=== PATIENT | male | born 1940 | race Caucasian/White ===

== ENCOUNTER 2021-08-12 13:15 | Emergency (ER) | payer MEDICARE, SELFPAY ==
[2021-08-12 13:16] VITALS: BP 166/80; PULSE 72; RESP 16; TEMP 36.2; O2SAT 96; BMI 30.1
--- NOTE | 2021-08-12 13:41 | EX.ED.DYSGE1 ---
HPI History of Present Illness Chief Complaint: Complaint Narrative Narrative: 81-year-old male here for urinary retention. The patient states he developed acute onset of lower abdominal pain earlier today. States pain is constant, severe without alleviating or exacerbating features. Denies any lower extremity weakness, syncope. States no vomiting no fever. States he has not urinated today. Old chart review: hypertension, hyperlipidemia, CAD, BPH, PFSH PFSH Home Medications amlodipine 10 mg tablet 10 mg PO DAILY 08/12/21 [History Last Taken Unknown] loratadine 10 mg tablet 10 mg PO DAILY 08/12/21 [History Last Taken Unknown] losartan 100 mg tablet 100 mg PO DAILY 08/12/21 [History Last Taken Unknown] metformin 500 mg tablet 500 mg PO DAILY 08/12/21 [History Last Taken Unknown] metoprolol succinate 50 mg tablet,extended release 24 hr 50 mg PO DAILY 08/12/21 [History Last Taken Unknown] rosuvastatin 5 mg tablet 5 mg PO DAILY 08/12/21 [History Last Taken Unknown] Allergy/AdvReac Type Severity Reaction Status Date / Time No Known Allergies Allergy Verified 08/12/21 13:16 Social History Smoking Status: Never smoker ROS ROS ED Eyes Eyes: Denies other visual disturbances ENT ENT ED: Denies ear pain Cardiovascular Cardiovascular: Denies chest pain Respiratory/Chest Respiratory/Chest: Denies dyspnea Gastrointestinal Gastrointestinal: Reports abdominal pain Genitourinary Genitourinary ED: Reports other Details: Notes urinary retention ; Denies dysuria Musculoskeletal Musculoskeletal: Denies joint pain Integumentary Denies rash Neurologic Neurologic: Denies dizziness, focal weakness, numbness, syncope or weakness Psychiatric Psychiatric: Denies homicidal ideation or suicidal ideation EXAM Physical Exam Const Vital Signs: 08/12/21 13:16 Temperature 97.2 F L Temperature Source Temporal Pulse Rate 72 Respiratory Rate 16 Blood Pressure 166/80 H Blood Pressure Mean 108 Pulse Ox 96 Oxygen Delivery Method Room Air Negative for alert or oriented x3 General Appearance ED: Negative for comfortable Orientation / Consciousness: Negative for awake HEENT Denies normocephalic Face and Sinus: Negative for face symmetric External Ear: Negative for external ears normal Mouth ED: No moist mucous membranes normal Throat: Negative for posterior oropharynx normal Eyes Negative for PERRL or EOMs intact bilaterally Neck No full ROM Carotids: other Other Details: no carotid bruits Chest Wall Negative for inspection of chest normal Resp No normal respiratory effort, No no retractions, No no use of accessory muscles and No clear to auscultation bilaterally Cardio Negative for no murmurs or peripheral pulses 2+ throughout GI Negative for no bruits GI Narrative: no pulsatile abdominal masses. Lower abdominal TTP, lower abdominal/suprapubic fullness. No peritoneal signs. Negative for no CVA tenderness Back/Spine General Back: Negative for CVA tenderness Cervical Spine: Negative for cervical ROM normal Extremity Negative for normal to inspection or full ROM Skin no rashes or lesions noted MDM MDM MDM Narrative Medical decision making narrative: 81-year-old male here for lower abdominal pain, urinary retention in the setting of BPH. Patient was hemodynamically stable, afebrile, nontoxic-appearing. Exam with lower abdominal, suprapubic fullness. Bladder scan showed urinary retention of approximate 600 cc. Rodney catheter was placed by nursing and drained 700 cc. Patient's pain resolved. Likely etiology is urinary retention. Check urine for infection. If there is urine infection will give antibiotics we will give prompt urologic follow-up Lab Data Attestation: I reviewed the patient's lab results. Lab results narrative: Urinalysis shows no evidence of urinary inflammation suggestive of UTI Labs: Laboratory Results - last 24 hr 08/12/21 13:49 Urine Color Yellow Urine Clarity Clear Urine pH 6.0 Ur Specific Branscomb 1.015 Urine Protein 30 H Urine Glucose (UA) 100 H Urine Ketones Negative Urine Occult Blood 25 H Urine Nitrite Negative Urine Bilirubin Negative Urine Urobilinogen Normal Ur Leukocyte Esterase Negative Treatment and Re-Evaluation Narrative: After Rodney catheter placement patient noted complete resolution of symptoms peer repeat abdominal exam remained benign with no tenderness no indication for further imaging or labs at this time. Patient is appropriate for discharge home. Discharge Plan Triage Chief Complaint: Complaint ED Provider: Robert Foster Dx/Rx/DC Orders Clinical Impression: Urinary retention Prescriptions: No Action metformin 500 mg Tablet 500 mg PO DAILY metoprolol succinate 50 mg Tablet Extended Release 24 Hr 50 mg PO DAILY amlodipine 10 mg Tablet 10 mg PO DAILY losartan 100 mg Tablet 100 mg PO DAILY loratadine 10 mg Tablet 10 mg PO DAILY rosuvastatin 5 mg Tablet 5 mg PO DAILY Primary Care Provider: Jason Valentine CLEANER GREASER Referrals: Jone Virk MD [NON-STAFF] - John Spain MD [STAFF PHYSICIAN] - Activity Restrictions/Additional Instructions: Please follow-up with the urologist that has been provided. Please keep Rodney catheter in place until follow-up. Please return if develop worsening abdominal pain, fever, nausea vomiting, chills. Disposition Disposition: Home, Self Care
[2021-08-12 14:08] LABS: Color, Urine Yellow (Yellow); Glucose, Dipstick 100 mg/dl (Normal); Ketone-Dipstick Negative (Negative); Leukocyte Esterase-Dipstick Negative /ul (Negative); Nitrite-Dipstick Negative (Negative); Occult Blood-Urine 25 /ul (Negative); Protein-Dipstick 30 mg/dl (Negative); Specific Gravity, Urine 1.015 (1.002-1.030); Urine Bilirubin Dipstick Negative (Negative); Urine Urobilinogen Normal (Normal)
[2021-08-12 14:10] LABS: Urine Clarity Clear (Clear)
== END 2021-08-12 15:47 | disposition home or self-care (01) ==
PROVIDERS: Emergency Provider Emergency Medicine; PCP Nurse Practitioner Family; Visit Provider Emergency Medicine
DX: N40.1 Benign prostatic hyperplasia with lower urinary tract symptoms (principal); R33.8 Other retention of urine; I25.10 Atherosclerotic heart disease of native coronary artery without angina pectoris; I10 Essential (primary) hypertension; E78.5 Hyperlipidemia, unspecified; Z79.899 Other long term (current) drug therapy
CPT/HCPCS: 51702; 81002; 99283

== ENCOUNTER 2021-08-19 20:54 | Emergency (ER) | payer MEDICARE, SELFPAY ==
[2021-08-19 20:55] VITALS: BP 168/78; PULSE 104; RESP 18; TEMP 35.9; O2SAT 95; BMI 30.1
--- NOTE | 2021-08-19 21:16 | EDS_ITS ---
HPI History of Present Illness Chief Complaint: Complaint Informant: patient and family Narrative Narrative: Patient presents with urinary retention. He states he had a catheter placed about a week ago. He went to Dr. Estrella's office today. The catheter was r emoved. He initially urinated but since about 1:00 this afternoon he has not been able to urinate at all. He feels pressure in his lower abdomen. He has not been having bleeding. No nausea vomiting fevers or chills. Nothing makes this better or worse. He states this is exactly what he felt last time and the catheter resolved all his symptoms. [facility] Home Medications amlodipine 10 mg tablet 10 mg PO DAILY 08/12/21 [History Last Taken Unknown] loratadine 10 mg tablet 10 mg PO DAILY 08/12/21 [History Last Taken Unknown] losartan 100 mg tablet 100 mg PO DAILY 08/12/21 [History Last Taken Unknown] metformin 500 mg tablet 500 mg PO DAILY 08/12/21 [History Last Taken Unknown] metoprolol succinate 50 mg tablet,extended release 24 hr 50 mg PO DAILY 08/12/21 [History Last Taken Unknown] rosuvastatin 5 mg tablet 5 mg PO DAILY 08/12/21 [History Last Taken Unknown] Allergy/AdvReac Type Severity Reaction Status Date / Time No Known Allergies Allergy Verified 08/19/21 20:55 Social History Smoking Status: Never smoker ROS [facility] ED Constitutional Constitutional ED: Denies chills, fever(s) or sweats Cardiovascular Cardiovascular: Denies chest pain or palpitations Respiratory/Chest Respiratory/Chest: Denies cough or dyspnea Gastrointestinal Gastrointestinal: Reports abdominal pain; Denies constipation, diarrhea, melena, nausea or vomiting Genitourinary Genitourinary ED: Reports other Details: See history of present illness ; Denies hematuria Musculoskeletal Musculoskeletal: Denies back pain Integumentary Denies rash Neurologic Neurologic: Denies paresthesias or weakness Hematologic/Lymphatic Hematologic/Lymphatic: Denies easy bleeding or easy bruising Allergic/Immunologic Allergic/Immunologic ED: Denies urticaria EXAM Physical Exam Const Vital Signs: 08/19/21 20:55 08/19/21 21:39 08/19/21 22:10 Temperature 96.7 F L Temperature Source Temporal Pulse Rate 104 H 74 Respiratory Rate 18 17 17 Blood Pressure 168/78 H 126/79 H Blood Pressure Mean 108 94 Pulse Ox 95 98 Oxygen Delivery Method Room Air Room Air Positive well nourished and well developed Constitutional Narrative: Patient looks little uncomfortable. He is up pacing around the room. General Appearance ED: well developed HEENT Reports moist mucous membranes Chest Wall inspection of chest normal Resp normal respiratory effort and clear to auscultation bilaterally Cardio regular rate and regular rhythm GI normal to inspection, nondistended, normoactive bowel sounds GI Narrative: Patient does have fullness over the lower abdomen and some mild tenderness without rebound or guarding. No CVA tenderness Back/Spine no CVA tenderness Extremity normal to inspection Neuro oriented x3 Psych mental status grossly normal Skin no rashes or lesions noted MDM MDM MDM Narrative Medical decision making narrative: Patient had a little over 500 cc out immediately. He is still draining a little bit but is slowing down. No blood. He states as soon as the catheter went in his symptoms of pressure and discomfort resolved. He did just start Flomax today even though its not on his med list. He will follow-up with urologist. His urine does not show any signs consistent with infection. He already is familiar with management of a leg bag. Lab Data Attestation: I reviewed the patient's lab results. Labs: Laboratory Results - last 24 hr 08/19/21 21:42 Urine Color Yellow Urine Clarity Sl. Cloudy Urine pH 5.0 Ur Specific Ephraim 1.020 Urine Protein 15 H Urine Glucose (UA) Normal Urine Ketones Negative Urine Occult Blood 25 H Urine Nitrite Negative Urine Bilirubin Negative Urine Urobilinogen Normal Ur Leukocyte Esterase Negative Urine RBC 0-5 SEEN Urine WBC 0-5 SEEN Ur Squamous Epith Cells 0-5 SEEN Urine Bacteria RARE Urine Mucus 1+ Discharge Plan Triage Chief Complaint: Complaint Other Complaint: Abd Pain ED Provider: Hang Guadarrama Dx/Rx/DC Orders Clinical Impression: Urinary retention Instructions: ED Urinary Retention, Male Prescriptions: No Action metformin 500 mg Tablet 500 mg PO DAILY metoprolol succinate 50 mg Tablet Extended Release 24 Hr 50 mg PO DAILY amlodipine 10 mg Tablet 10 mg PO DAILY losartan 100 mg Tablet 100 mg PO DAILY loratadine 10 mg Tablet 10 mg PO DAILY rosuvastatin 5 mg Tablet 5 mg PO DAILY Primary Care Provider: Jason Valentine NP Referrals: John Spain MD [STAFF PHYSICIAN] - 1 Week [place],Jasno Leonardo LASER BEAM CUTTER, LASER BEAM CUTTER-C [Primary Care Provider] - Disposition Disposition: Home, Self Care
[2021-08-19 21:39] VITALS: RESP 17
[2021-08-19 21:50] LABS: Color, Urine Yellow (Yellow); Glucose, Dipstick Normal (Normal); Ketone-Dipstick Negative (Negative); Leukocyte Esterase-Dipstick Negative /ul (Negative); Nitrite-Dipstick Negative (Negative); Occult Blood-Urine 25 /ul (Negative); Protein-Dipstick 15 mg/dl (Negative); Urine Bilirubin Dipstick Negative (Negative); Urine Clarity Sl. Cloudy (Clear); Urine Urobilinogen Normal (Normal)
[2021-08-19 22:01] LABS: Bacteria RARE /hpf (None Seen); Mucous, Urine 1+ /hpf (<or=2+); Red Blood Cells-Urine 0-5 SEEN /hpf (0-5); Squamous Epithelial Cells - UA 0-5 SEEN /hpf (0-5); White Blood Cells 0-5 SEEN /hpf (0-5)
[2021-08-19 22:10] VITALS: BP 126/79; PULSE 74; RESP 17; O2SAT 98
== END 2021-08-19 22:23 | disposition home or self-care (01) ==
PROVIDERS: Emergency Provider Emergency Medicine; PCP Nurse Practitioner Family; Visit Provider Emergency Medicine
DX: R33.9 Retention of urine, unspecified (principal)
CPT/HCPCS: 51702; 81001; 87077; 87086; 87088; 87186; 99283

== ENCOUNTER 2021-09-18 14:06 | Observation (INO) | payer MEDICARE, SELFPAY ==
--- NOTE | 2021-09-13 12:24 | EKG12_ITS ---
Test Reason : PREOP Blood Pressure : / mmHG Vent. Rate : 060 BPM Atrial Rate : 060 BPM P-R Int : 332 ms QRS Dur : 084 ms QT Int : 422 ms P-R-T Axes : 078 016 013 degrees QTc Int : 422 ms Sinus rhythm with 1st degree A-V block Otherwise normal ECG Confirmed by ADELE STANTON, LV ([id number]), publications editor HOMAR ESQUIVEL ([id number]) on 09/17/2021 9:11:22 AM Referred By: John Spain Confirmed By:LV ANGULO MD
[2021-09-13 14:17] LABS: Hemoglobin A1c 6.6 % (3.8-5.6)
[2021-09-13 14:26] LABS: Anion Gap 5 (5-15); BUN 10 mg/dL (7-18); BUN/Creat Ratio 10.5 RATIO (10-20); Calcium,Total 9.3 mg/dL (8.5-10.1); Chloride 107 mmol/L (98-107); Creatinine, Serum 0.95 mg/dL (0.70-1.30); EST Glomerular Filtration Rate 81 mL/min (>60); Est Glom Filt Rate - Afr Amer 98 mL/min (>60); Glucose 92 mg/dL (74-106); Potassium 3.8 mmol/L (3.5-5.1); Sodium Level 138 mmol/L (136-145)
[2021-09-18] VITALS (11 sets, daily range): BP systolic 120–158; BP diastolic 60–87; PULSE 50–66; RESP 16–18; TEMP 36.2–36.9; O2SAT 91–97; BMI 29.5
[2021-09-18] MEDS: Lactated Ringers 1,000 ML 15 ML IV ×2 (10:05→17:07)
[2021-09-18 10:51] LABS: Bedside Glucose 115 mg/dL (74-106)
--- NOTE | 2021-09-18 12:15 | PROS_PTH ---
PATIENT: MIRI MOBLEY LOC: MS3 U#:[id number] AGE/SX: 81/M ROOM: [facility] RE09/18/[address]: Dr. John Spain MD : [id number] BED: 1 DIS: 09/19/2021 SPEC #: [id number] RECD: 09/18/21 15:54 STATUS: RUI ESTRADA #: [id number] HOA: 09/18/21 12:[address]: John Spain DEPT: SURGICAL PATHOLOGY RECD BY: Jules Cervantes ENTERED: 09/19/21 07:22 SP TYPE: TURP OTHR DR: MD Jason Gomez, CITY PLANNING ENGINEER-C Tissues: Prostate, NOS Procedures: Surgery Specimen Level IV HEADER OPERATION: Cysto, TUR prostate, Olympus PRE-OP DIAGNOSIS: Urinary retention, enlarged prostate TISSUE SUBMITTED: Prostate chips MICROSCOPIC DIAGNOSIS Prostate chips, transurethral resection: Benign prostatic hyperplasia, glandular and stromal type. Focal chronic inflammation. CORNELIO:antonina 09/20/2021 MICROSCOPIC DESCRIPTION Slides are reviewed. GROSS DESCRIPTION Received is one container labeled with the patient's name and designated prostate chips. The specimen consists of multiple irregular fragments of pink-santana, rubbery, soft tissue that in aggregate weigh 30.7 gm and measure in aggregate 8 x 7 x 3 cm. Souvenir And Novelty Maker tissue is submitted in ten cassettes. / CORNELIO:antonina 09/19/2021 TC:5 CPT: 36041
[2021-09-18] MEDS: Cefazolin 2 GM in 0.9% Normal Saline 100 ML IV (12:45)
--- NOTE | 2021-09-18 13:34 | PCM.HP.STD ---
HPI - General General Date of Admission: 09/18/21 Chief Complaint: Retention of urine HPI Narrative MIRI MOBLEY, is a 81 M who presents For surgery for a transurethral resection of the prostate has a history of retention of urine has a catheter in place here stent is possible after surgery still may not be able to urinate and may have to learn self intermittent catheterization should. All his questions were addressed we discussed the risk and rewards of surgery and will plan for TURP today. Presents for TURP [facility] Medical History (Updated 09/12/21 @ 11:04 by Leslie Arzola) Arthritis Diabetes High cholesterol Hypertension Indwelling urethral catheter present Prostate disease Wears dentures Wears glasses Home Medications amlodipine 10 mg tablet (Norvasc) 10 mg PO DAILY 08/12/21 [History Last Taken 09/18/21 06:30] loratadine 10 mg tablet 10 mg PO DAILY 08/12/21 [History Last Taken Unknown] losartan 100 mg tablet 100 mg PO DAILY 08/12/21 [History Last Taken 09/18/21 06:30] metformin 500 mg tablet 500 mg PO DAILY 08/12/21 [History Last Taken Unknown] metoprolol succinate 50 mg tablet,extended release 24 hr 50 mg PO DAILY 08/12/21 [History Last Taken 09/18/21 06:30] rosuvastatin 5 mg tablet 5 mg PO DAILY 08/12/21 [History Last Taken Unknown] tamsulosin 0.4 mg capsule 1 cap PO DAILY 09/12/21 [History Last Taken Unknown] Allergy/AdvReac Type Severity Reaction Status Date / Time No Known Allergies Allergy Verified 09/18/21 10:31 Surgical History (Updated 09/12/21 @ 11:04 by Lselie Arzola) History of hernia surgery Social History Smoking Status: Never smoker Vital Signs Vital Signs Vital Signs: 09/18/21 10:34 09/18/21 10:34 Temperature 97.7 F L Temperature Source Temporal Pulse Rate 50 L Respiratory Rate 18 Respiratory Pattern Normal Blood Pressure 134/68 H Blood Pressure Mean 90 Blood Pressure Source Monitor Blood Pressure Position Sitting Blood Pressure Location Right Arm Pulse Ox 97 Oxygen Delivery Method Room Air Weight Weight: 96 kg Body Mass Index (BMI) 29.5 Results Lab / Micro Data Result Diagrams: 09/13/21 12:14 Labs: Laboratory Results - last 24 hr 09/18/21 10:21: POC Glucose 115 H Micro: Microbiology 09/18/21 10:16 Nasal Secretion SARS-CoV-2 Antigen (Rapid) - Final
--- NOTE | 2021-09-18 14:06 | PCM.DC ---
Discharge Instructions Diet Discharge Diet: No restrictions Follow Up Care Please Follow Up With: John Spain MD Test Results: Test results from this visit will be discussed in further detail at your follow-up appointment, if applicable. Discharge Plan Admission Attending Provider: John Spain Primary Care Provider: Jason Valentine NP Consulting Providers: Tobias Clinton Discharge Orders/Prescriptions Prescriptions: No Action metformin 500 mg Tablet 500 mg PO DAILY metoprolol succinate 50 mg Tablet Extended Release 24 Hr 50 mg PO DAILY amlodipine [Norvasc] 10 mg Tablet 10 mg PO DAILY losartan 100 mg Tablet 100 mg PO DAILY loratadine 10 mg Tablet 10 mg PO DAILY rosuvastatin 5 mg Tablet 5 mg PO DAILY tamsulosin 0.4 mg capsule 1 cap PO DAILY Label Comments: take 1 capsule by mouth at bedtime Other Ambulatory Orders: 12 Lead EKG (Routine) Location: None Selected Ordered By: Dr. Tobias Clinton Referrals / Follow Up: Jason Valentine NP, STONEWORKING BELT SANDER-C [Primary Care Provider] - Disposition Disposition (needs filled in before D/C Order can be placed): Home, Self Care
--- NOTE | 2021-09-18 15:41 | PCM.OPRPT ---
Report of Operation Date of Procedure: 09/18/21 Pre-Operative Diagnosis: BPH with retention of urine Post-Operative Diagnosis: Same Surgery/Procedure Performed:: Transurethral section of the prostate Description of Surgical Findings:: In the preoperative setting I discussed with the patient how the surgery would be done with expect afterwards. We discussed how a prostate resection is done and we discussed the risk of the surgery including, bleeding, infection, retrograde ejaculation, changes with ejaculation or intercourse,. We discussed the possibility that the resection of the prostate may not alleviate his urinary symptoms. We discussed the small risk of developing scar tissue along the urethral channel and strictures. We also discussed the chance of the prostate could grow back and he may need further surgery or treatment in the future for prostate problems. Patient was taken back to the operating room, timeout procedure was performed, he was identified and marked and placed on the operating room table. He underwent general anesthesia. He was placed in dorsolithotomy position. Penis and testicles were prepped and draped in usual sterile fashion. Went into the bladder using the visual obturator with a resectoscope. Once inside the bladder identified the right and left ureteral orifice. I then identified the prostate and the anatomy of the prostate. I marked out the area of the sphincter and the verumontanum was identified. I then proceeded with the prostate resection first resected the median lobe. And then resected the right lobe of the prostate. Then to resect the left lobe of the prostate. I then resected the apical tissue of the prostate. This was a complete resection of all obstructive tissue to improve voiding and relieve obstruction. I then made sure that there was no injury to the sphincter or the verumontanum was still intact. At the end of the resection all the chips were Ellik out of the bladder. I then identified the left and right ureteral orifice and these were confirmed to be in good position and effluxing and not injured. The resectoscope was removed, a 22 Bengali catheter was placed into the bladder on continuous irrigation. And the urine was fairly light pink color and draining normally. He was taken back to the PACU in good condition. CPT 45267 Surgeon: John Spain Type of Anesthesia: General
[2021-09-18 16:51] LABS: Bedside Glucose 127 mg/dL (74-106)
--- NOTE | 2021-09-18 21:08 | NURSING ---
pt's daughter, Cherry called in & given update
[2021-09-18] MEDS: Ciprofloxacin 500 MG Tablet PO (22:07)
[2021-09-19 04:00] VITALS: BP 134/80; PULSE 63; RESP 18; TEMP 36.8; O2SAT 94
[2021-09-19] MEDS: 0.9% Saline Lock 10 ML Syringe IV (08:40)
[2021-09-19] MEDS: Loratadine 10 MG Tablet PO (08:41)
[2021-09-19] MEDS: Tamsulosin HCl 0.4 MG Capsule PO (08:41)
[2021-09-19] MEDS: metFORMIN HCl 500 MG Tablet PO (08:41)
[2021-09-19] MEDS: Ciprofloxacin 500 MG Tablet PO (08:41)
[2021-09-19] MEDS: Losartan Potassium 100 MG Tablet PO (08:41)
[2021-09-19 08:42] VITALS: PULSE 80
[2021-09-19] MEDS: amLODIPine 10 MG Tablet PO (08:42)
[2021-09-19] MEDS: Atorvastatin Calcium 10 MG Tablet PO (08:42)
[2021-09-19] MEDS: Metoprolol(XL)Succ 50 MG Tablet PO (08:42)
[2021-09-19 08:47] VITALS: O2SAT 98
[2021-09-19 08:56] VITALS: BP 142/92; PULSE 82; RESP 18; TEMP 36.7; O2SAT 97
== END 2021-09-19 10:45 | disposition home or self-care (01) ==
LOC: MS3 17:48
PROVIDERS: Anesthesiology; Admitting Provider Urology; PCP Nurse Practitioner Family; Referring Provider Urology; Visit Provider Urology
PROC: (CPT 52601; principal; 2021-09-18 12:05)
DX: N40.1 Benign prostatic hyperplasia with lower urinary tract symptoms (principal); K50.90 Crohn's disease, unspecified, without complications; E10.9 Type 1 diabetes mellitus without complications; R33.8 Other retention of urine; I10 Essential (primary) hypertension; E78.00 Pure hypercholesterolemia, unspecified; M19.90 Unspecified osteoarthritis, unspecified site; Z79.899 Other long term (current) drug therapy; Z79.84 Long term (current) use of oral hypoglycemic drugs; I44.0 Atrioventricular block, first degree
CPT/HCPCS: 52601; 00914; 36415; 80048; 82962; 83036; 87426; 88305; 93005; 99218; J7120; A4216; G0378; J2405

== ENCOUNTER 2021-11-11 12:17 | Emergency (ER) | payer MEDICARE, SELFPAY ==
[2021-11-11 12:18] VITALS: BP 148/74; PULSE 77; RESP 16; TEMP 35.9; O2SAT 97; BMI 30.4
[2021-11-11 12:20] VITALS: BP 148/74; PULSE 77; RESP 16; TEMP 35.9; O2SAT 97
--- NOTE | 2021-11-11 12:21 | RAD_ITS ---
STUDY: X-RAY CHEST REASON FOR EXAM: Male, 81 years old. COUGH TECHNIQUE: Single frontal view of the chest was obtained COMPARISON: None. FINDINGS: The lungs are clear and expanded. There is no demonstrated pleural abnormality. Normal size heart. Normal mediastinum and ej. Normal visualized pulmonary arteries. Normal visualized aortic arch and descending thoracic aorta. Normal visualized thoracic spine. Normal visualized ribs, clavicles, and shoulders. There is no demonstrated abnormality of the visualized soft tissue structures of the upper abdomen. RAD/Chest 1 View (Portable) IMPRESSION: Normal x-ray examination of the chest. Electronically Signed: Ricky Michel MD at 12:48 EDT ,
--- NOTE | 2021-11-11 14:17 | EDS_ITS ---
HPI HPI - URI History of Present Illness Chief Complaint: Cold Sx Narrative Narrative: Patient presenting with a cough since Thursday. [place] Cough is been persistent but is not short of breath. He denies chest pain. No nausea or vomiting. No fever, body aches, chills. Patient taking Mucinex without relief. Patient has not been tested for anything outpatient. He has been coughing now for 5 days. ROS ROS ED Constitutional Constitutional ED: Denies chills, fever(s) or sweats Eyes Eyes: Denies change in vision ENT ENT ED: Denies rhinorrhea or sore throat Cardiovascular Cardiovascular: Denies chest pain or palpitations Respiratory/Chest Respiratory/Chest: Reports cough; Denies dyspnea Gastrointestinal Gastrointestinal: Denies abdominal pain or constipation Genitourinary Genitourinary ED: Denies dysuria or hematuria Musculoskeletal Musculoskeletal: Denies arthralgias or myalgias Integumentary Denies abscess Neurologic Neurologic: Denies headache(s) or paresthesias Psychiatric Psychiatric: Denies anxiety or depression [facility] Medical History Arthritis Diabetes High cholesterol Hypertension Indwelling urethral catheter present Prostate disease Wears dentures Wears glasses Home Medications amlodipine 10 mg tablet (Norvasc) 10 mg PO DAILY 08/12/21 [History Last Taken 09/18/21 06:30] loratadine 10 mg tablet 10 mg PO DAILY 08/12/21 [History Last Taken Unknown] losartan 100 mg tablet 100 mg PO DAILY 08/12/21 [History Last Taken 09/18/21 06:30] metformin 500 mg tablet 500 mg PO DAILY 08/12/21 [History Last Taken Unknown] metoprolol succinate 50 mg tablet,extended release 24 hr 50 mg PO DAILY 08/12/21 [History Last Taken 09/18/21 06:30] rosuvastatin 5 mg tablet 5 mg PO DAILY 08/12/21 [History Last Taken Unknown] tamsulosin 0.4 mg capsule 1 cap PO DAILY 09/12/21 [History Last Taken Unknown] Allergy/AdvReac Type Severity Reaction Status Date / Time No Known Allergies Allergy Verified 11/11/21 12:20 Surgical History History of hernia surgery Social History Smoking Status: Never smoker EXAM Physical Exam Const Vital Signs: 11/11/21 12:18 11/11/21 12:20 11/11/21 12:55 Temperature 96.6 F L 96.6 F L Temperature Source Temporal Temporal Pulse Rate 77 77 Respiratory Rate 16 16 Respiratory Effort Normal Non-Labored Respiratory Depth Normal Respiratory Pattern Normal Blood Pressure 148/74 H 148/74 H Blood Pressure Mean 98 98 Pulse Ox 97 97 Oxygen Delivery Method Room Air Room Air Positive well nourished General Appearance ED: NAD; Negative for pallor HEENT Reports moist mucous membranes normocephalic Eyes PERRL and EOMs intact bilaterally Neck no lymphadenopathy Resp normal respiratory effort and clear to auscultation bilaterally Auscultation: Negative for rales, rhonchi or wheezes Cardio Rate: regular rate and bradycardia GI non-tender Extremity normal to inspection Neuro oriented x3 and CN's II-XII intact bilaterally Sensorium / Orientation: alert Motor Exam: strength 5/5 throughout Psych mental status grossly normal Skin General Skin Exam: Negative for jaundice or pallor MDM MDM MDM Narrative Medical decision making narrative: Patient presenting with a cough. He states he has no other symptoms. He has been taking Mucinex at home. I obtained a chest x-ray today which on my interpretation shows no acute cardiopulmonary process and radiologist does agree. Vital signs are completely normal. He is 97% on room air. He is afebrile. Respirate 16, pulse 77. I obtained a rapid COVID which was positive today. Patient is already on day 5 of symptoms and doing very well. I counseled him on all findings. I feel he stable for discharge home. Return precautions were discussed. Impression: 1. Cough 2. COVID-19 Lab Data Attestation: I reviewed the patient's lab results. Radiography Diagnostic Testing: Clinical Impression(s) from Imaging Studies Chest X-Ray 11/11/21 12:21 IMPRESSION: Normal x-ray examination of the chest. Electronically Signed: Ricky Michel MD at 12:48 EDT Reading Location ID and State: [address] [place] [address] Tel , Service support , Discharge Plan Triage Chief Complaint: Cold Sx ED Provider: David Carrington Dx/Rx/DC Orders Prescriptions: No Action metformin 500 mg Tablet 500 mg PO DAILY metoprolol succinate 50 mg Tablet Extended Release 24 Hr 50 mg PO DAILY amlodipine [Norvasc] 10 mg Tablet 10 mg PO DAILY losartan 100 mg Tablet 100 mg PO DAILY loratadine 10 mg Tablet 10 mg PO DAILY rosuvastatin 5 mg Tablet 5 mg PO DAILY tamsulosin 0.4 mg capsule 1 cap PO DAILY Label Comments: take 1 capsule by mouth at bedtime Primary Care Provider: Jason Valentine NP Referrals: Jason Valentine NP, HORIZONTAL BORING MILL SET UP OPERATOR-C [Primary Care Provider] -
[2021-11-11 14:26] VITALS: RESP 18
== END 2021-11-11 14:27 | disposition home or self-care (01) ==
PROVIDERS: Emergency Provider Student in an Organized Health Care Education/Training Program; PCP Nurse Practitioner Family; Visit Provider Student in an Organized Health Care Education/Training Program
DX: U07.1 COVID-19 (principal); E11.9 Type 2 diabetes mellitus without complications; I10 Essential (primary) hypertension; E78.00 Pure hypercholesterolemia, unspecified; Z79.84 Long term (current) use of oral hypoglycemic drugs; Z79.899 Other long term (current) drug therapy
CPT/HCPCS: 71045; 87811; 99282